=== PATIENT | female | born 1950 | race Two or more races ===

== ENCOUNTER → 2024-08-27 | Outpatient (CLI) | payer OTHER, MEDICAID, SELFPAY ==
[2024-08-27 11:42] LABS: Collection Type, Urine Clean Catch; Squamous Epithelial Cell,Urine 0 /hpf (0-5)
[2024-08-27 12:51] LABS: Basophils % (Auto) 0 % (0-2.5); Eosinophils # (Auto) 0.1 Thou/mm3 (0.0-0.5); Eosinophils % (Auto) 3 % (0-10); Hematocrit 37.8 % (36.0-46.0); Hemoglobin 12.7 g/dL (12.0-16.0); Immature Granulocytes % (Auto) 0 % (0-0); Lymphocytes # (Auto) 1.4 Thou/mm3 (1.0-4.8); Lymphocytes % (Auto) 30 % (10-50); Mean Corpuscular HGB Conc 33.6 g/dl (31.0-37.0); Mean Corpuscular Hemoglobin 31.3 pg (25.0-35.0); Mean Corpuscular Volume 93 fL (80-100); Monocytes # (Auto) 0.3 Thou/mm3 (0.0-0.8); Monocytes % (Auto) 6 % (0-12); Neutrophils # (Auto) 2.7 Thou/mm3 (1.8-7.7); Neutrophils % (Auto) 60 % (37-80); Nucleated Red Blood Cell % 0 /100 WBC (0); Platelet Count 180 Thou/mm3 (140-440); RDW Standard Deviation 40.9 fL (36.4-46.3); Red Blood Count 4.06 Miln/mm3 (4.00-5.20); White Blood Count 4.5 Thou/mm3 (3.6-11.0)
[2024-08-27 13:07] LABS: Glucose Estimated Average 137 mg/dL (80-131); Hemoglobin A1C 6.4 % Hgb (4.8-6.0)
[2024-08-27 13:24] LABS: Alanine Aminotransferase 19 U/L (10-49); Albumin, Serum 4.3 gm/dL (3.4-4.8); Albumin/Globulin Ratio 1.4 (1.2-2.2); Alkaline Phosphatase 85 U/L (46-116); Anion Gap 8 (7-16); Aspartate Amino Transferase 26 U/L (0-34); BUN/Creatinine Ratio 23 Ratio (12-20); Blood Urea Nitrogen 14 mg/dL (9-23); Calcium 10.4 mg/dL (8.3-10.6); Calcium (Corrected) 10.4 mg/dL (8.5-10.1); Carbon Dioxide 30.3 mMol/L (20.0-31.0); Cardiac Risk Estimate 3.3 RATIO (3.7-5.6); Chloride 103 mMol/L (98-107); Cholesterol 118 mg/dL (132-200); Creatinine (Component) 0.6 mg/dL (0.6-1.3); Glucose 126 mg/dL (74-106); HDL Cholesterol 36 mg/dL (40-60); LDL Cholesterol,Calculated 58 mg/dL (0-130); Osmolality,Calculated 283 (275-295); Potassium 4.3 mMol/L (3.4-5.1); Sodium 141 mMol/L (136-145); Total Protein 7.3 gm/dL (5.7-8.2); Triglycerides 120 mg/dL (30-150); eGFR > 60 See Note
[2024-08-27 13:28] LABS: Bacteria,Urine Rare; Bilirubin,Urine Negative (Negative); Blood,Urine Negative (Negative); Clarity,Urine Clear (Clear/Hazy); Color,Urine Lt-Yellow (Lt Yel-Yel); Glucose, Urine Negative (Negative); Ketones,Urine Negative (Negative); Leukocyte Esterase,Urine Positive (Negative); Nitrite,Urine Negative (Negative); PH,Urine 6.5 (5.0-7.0); Protein,Urine Negative (Neg - Trace); RBC,Urine 3 /hpf (0-3); Specific Gravity,Urine 1.018 (1.001-1.035); WBC,Urine 31 /hpf (0-5)
[2024-08-27 13:44] LABS: Thyroid Stimulating Hormone 1.65 uIU/mL (0.55-4.78)
[2024-08-27 14:35] LABS: Parathyroid Hormone Intact 88.2 pg/ml (18.5-88.0)
== END | disposition home or self-care (01) ==
LOC: COPL 10:55
PROVIDERS: PCP Internal Medicine; Referring Provider Internal Medicine; Visit Provider Internal Medicine
DX: E11.9 Type 2 diabetes mellitus without complications (principal); I10 Essential (primary) hypertension; E78.5 Hyperlipidemia, unspecified
CPT/HCPCS: 36415; 80053; 80061; 81001; 83036; 83970; 84443; 85025

== ENCOUNTER → 2024-12-09 | Outpatient (CLI) | payer OTHER, MEDICAID, SELFPAY ==
--- NOTE | 2024-12-09 14:30 | XR_ITS ---
Examination: Abdomen sonogram, complete Date and time of exam: December 09, 2024 1430 hours INDICATIONS: Right lower abdominal pain left lower abdominal pain beginning 2 weeks ago. Technique: Multiple real-time grayscale transabdominal sonographic images of the abdomen have been obtained. Findings: Absent gallbladder Normal common bile duct 0.3 cm Pancreatic head 2.5 cm Aorta not enlarged Liver 14.4 cm no liver lesions Normal hepatopedal portal venous flow Patent IVC Right kidney 9.1 cm cortex 1.3 cm 18 mm lower pole cyst 7 mm midpole calculus Minimal hydronephrosis Left kidney 11.7 cm cortex 2.2 cm 8mm upper pole calculus Minimal hydronephrosis Spleen 11.4 cm IMPRESSION: Absent gallbladder Normal common bile duct Bilateral renal calculi Minimal bilateral hydronephrosis
== END | disposition home or self-care (01) ==
PROVIDERS: PCP Internal Medicine; Referring Provider Internal Medicine; Visit Provider Internal Medicine
DX: N20.0 Calculus of kidney (principal); N13.30 Unspecified hydronephrosis; Z90.49 Acquired absence of other specified parts of digestive tract
CPT/HCPCS: 76700

== ENCOUNTER → 2025-01-16 | Outpatient (CLI) | payer OTHER, MEDICAID, SELFPAY ==
[2025-01-16 08:58] LABS: Collection Type, Urine Clean Catch
[2025-01-16 09:18] LABS: Basophils # (Auto) 0.1 Thou/mm3 (0.0-0.2); Basophils % (Auto) 1 % (0-2.5); Eosinophils # (Auto) 0.1 Thou/mm3 (0.0-0.5); Eosinophils % (Auto) 2 % (0-10); Hematocrit 35.9 % (36.0-46.0); Hemoglobin 12.5 g/dL (12.0-16.0); Immature Granulocytes % (Auto) 0 % (0-0); Immature Granulocytes Auto 0.01 Thou/mm3 (0.00-0.00); Lymphocytes # (Auto) 1.9 Thou/mm3 (1.0-4.8); Lymphocytes % (Auto) 34 % (10-50); Mean Corpuscular HGB Conc 34.8 g/dl (31.0-37.0); Mean Corpuscular Hemoglobin 32.6 pg (25.0-35.0); Mean Corpuscular Volume 94 fL (80-100); Monocytes # (Auto) 0.4 Thou/mm3 (0.0-0.8); Monocytes % (Auto) 6 % (0-12); Neutrophils # (Auto) 3.2 Thou/mm3 (1.8-7.7); Neutrophils % (Auto) 56 % (37-80); Nucleated Red Blood Cell % 0 /100 WBC (0); Platelet Count 153 Thou/mm3 (140-440); RDW Standard Deviation 42.3 fL (36.4-46.3); Red Blood Count 3.83 Miln/mm3 (4.00-5.20); White Blood Count 5.6 Thou/mm3 (3.6-11.0)
[2025-01-16 09:24] LABS: Glucose Estimated Average 140 mg/dL (80-131); Hemoglobin A1C 6.5 % Hgb (4.8-6.0)
[2025-01-16 09:27] LABS: Bacteria,Urine 4+; Bilirubin,Urine Negative (Negative); Blood,Urine Trace (Negative); Clarity,Urine Clear (Clear/Hazy); Color,Urine Lt-Yellow (Lt Yel-Yel); Glucose, Urine Negative (Negative); Ketones,Urine Negative (Negative); Leukocyte Esterase,Urine Positive (Negative); Nitrite,Urine Positive (Negative); Protein,Urine Negative (Neg - Trace); RBC,Urine 3 /hpf (0-3); Specific Gravity,Urine 1.024 (1.001-1.035); Squamous Epithelial Cell,Urine 1 /hpf (0-5); WBC,Urine 42 /hpf (0-5)
[2025-01-16 09:28] LABS: Parathyroid Hormone Intact 95.9 pg/ml (18.5-88.0)
[2025-01-16 09:28] LABS: Calcium, Random Urine 11 mg/dL (2-18); Creatinine MALB Rnd Ur 99 mg/dL (30-125); Creatinine,Random Urine 99 mg/dL (30-125); Microalbumin Creat Ratio 12 mg/gCrea (<30); Microalbumin, Random Urine 12 mg/L (0-300)
[2025-01-16 09:32] LABS: Alanine Aminotransferase 22 U/L (10-49); Albumin, Serum 4.2 gm/dL (3.4-4.8); Albumin/Globulin Ratio 1.6 (1.2-2.2); Alkaline Phosphatase 79 U/L (46-116); Anion Gap 8 (7-16); Aspartate Amino Transferase 25 U/L (0-34); BUN/Creatinine Ratio 21 Ratio (12-20); Blood Urea Nitrogen 15 mg/dL (9-23); Carbon Dioxide 23.9 mMol/L (20.0-31.0); Cardiac Risk Estimate 3.2 RATIO (3.7-5.6); Chloride 109 mMol/L (98-107); Cholesterol 104 mg/dL (132-200); Creatinine (Component) 0.7 mg/dL (0.6-1.3); Globulin 2.7 gm/dL (2.3-3.5); Glucose 147 mg/dL (74-106); HDL Cholesterol 33 mg/dL (40-60); LDL Cholesterol,Calculated 53 mg/dL (0-130); Osmolality,Calculated 285 (275-295); Potassium 4.1 mMol/L (3.4-5.1); Sodium 141 mMol/L (136-145); Thyroid Stimulating Hormone 1.79 uIU/mL (0.55-4.78); Total Protein 6.9 gm/dL (5.7-8.2); Triglycerides 91 mg/dL (30-150); eGFR > 60 See Note
== END | disposition home or self-care (01) ==
LOC: COPL 08:01
PROVIDERS: PCP Internal Medicine; Referring Provider Internal Medicine; Visit Provider Internal Medicine
DX: E11.9 Type 2 diabetes mellitus without complications (principal); I10 Essential (primary) hypertension; E78.5 Hyperlipidemia, unspecified; E55.9 Vitamin D deficiency, unspecified
CPT/HCPCS: 36415; 80053; 80061; 81001; 82043; 82306; 82340; 82570; 83036; 83970; 84443; 85025

== ENCOUNTER → 2025-01-28 | Outpatient (CLI) | payer OTHER, MEDICAID, SELFPAY ==
--- NOTE | 2025-01-28 13:00 | XR_ITS ---
Examination: Thyroid sonography complete TECHNIQUE: Grayscale sonographic images thyroid lobes are carful analysis Date and time: January 28, 2025 1318 hours INDICATIONS: Hyperparathyroidism, abnormal laboratory values on examination 2 weeks ago FINDINGS: Right thyroid 3.9 cm Lower pole cyst 4 x 4 millimeter, 2 x 2 mm Isthmus nodule with calcifications 5 x 5 mm Left thyroid 3.2 cm No cystic or solid mass IMPRESSION: Small isthmus thyroid nodule 5 x 4 x 5 mm
--- NOTE | 2025-01-28 13:45 | XR_ITS ---
Examination: Screening digital mammography, bilateral Computer aided detection 3-D breast Tomosynthesis, bilateral Date and time of exam: January 28, 2025 1330 hours Compared to mammograms dating to February 16, 2018 Indication: Screening Technique: Nonmagnified MLO, CC views of the breasts to been obtained, reconstructed from 3-D Tomosynthesis images. R2 computer aided detection program utilized for evaluation of suspicious masses and/or abnormal calcifications. 3-D Tomosynthesis images obtained. Findings: Scattered areas of fibroglandular density. Benign calcifications. No interval suspicious masses Impression: BI-RADS category II: Benign Findings. Recommend 1 year follow-up mammogram.
--- NOTE | 2025-01-28 14:20 | XR_ITS ---
Examination: Bone densitometry Date and time of exam:January 28, 2025 1657 hours INDICATIONS: Hysterectomy age 53 diabetic vitamin D 2 months personal history osteopenia Technique: Lumbar spine and hip total bone mineralization values of an calculated. Peak reference and age match control results have been displayed. Findings: Lumbar spine total bone mineralization is0.815 gm/cm2. This is 2.1 standard deviations below peak reference. This is 24 standard deviations above age-matched controls. Hip total bone mineralization is 0.696 gm/cm2 This is 2.0 standard deviations below peak reference. This is 0.1 standard deviations below age-matched controls Impression: There is osteopenia based on lumbar spine measurements. There is osteoporosis based on hip measurements Lumbar mineralization is increased 1.9% compared with July 08, 2021 Hip mineralization is decreased 3.2% compared with July 08, 2021
== END | disposition home or self-care (01) ==
LOC: CDIM 12:59
PROVIDERS: PCP Internal Medicine; Referring Provider Internal Medicine; Visit Provider Internal Medicine
DX: Z12.31 Encounter for screening mammogram for malignant neoplasm of breast (principal); R92.323 Mammographic fibroglandular density, bilateral breasts; R92.1 Mammographic calcification found on diagnostic imaging of breast; M85.88 Other specified disorders of bone density and structure, other site; M81.0 Age-related osteoporosis without current pathological fracture; E04.1 Nontoxic single thyroid nodule
CPT/HCPCS: 76536; 77063; 77067; 77080

== ENCOUNTER → 2025-02-20 | Outpatient (CLI) | payer OTHER, MEDICAID, SELFPAY ==
[2025-02-20 10:00] LABS: Collection Type, Urine Clean Catch
[2025-02-20 10:16] LABS: Basophils # (Auto) 0.0 Thou/mm3 (0.0-0.2); Basophils % (Auto) 1 % (0-2.5); Eosinophils # (Auto) 0.1 Thou/mm3 (0.0-0.5); Eosinophils % (Auto) 2 % (0-10); Hematocrit 38.7 % (36.0-46.0); Hemoglobin 13.3 g/dL (12.0-16.0); Immature Granulocytes Auto 0.02 Thou/mm3 (0.00-0.00); Lymphocytes # (Auto) 1.5 Thou/mm3 (1.0-4.8); Lymphocytes % (Auto) 28 % (10-50); Mean Corpuscular HGB Conc 34.4 g/dl (31.0-37.0); Mean Corpuscular Hemoglobin 32.6 pg (25.0-35.0); Mean Corpuscular Volume 95 fL (80-100); Monocytes # (Auto) 0.3 Thou/mm3 (0.0-0.8); Monocytes % (Auto) 6 % (0-12); Neutrophils # (Auto) 3.3 Thou/mm3 (1.8-7.7); Neutrophils % (Auto) 63 % (37-80); Nucleated Red Blood Cell # 0.00 Thou/mm3 (0.00-0.00); Nucleated Red Blood Cell % 0 /100 WBC (0); Platelet Count 129 Thou/mm3 (140-440); RDW Standard Deviation 41.8 fL (36.4-46.3); Red Blood Count 4.08 Miln/mm3 (4.00-5.20); White Blood Count 5.3 Thou/mm3 (3.6-11.0)
[2025-02-20 10:19] LABS: Bilirubin,Urine Negative (Negative); Blood,Urine Negative (Negative); Clarity,Urine Clear (Clear/Hazy); Color,Urine Yellow (Lt Yel-Yel); Glucose, Urine Negative (Negative); Ketones,Urine Negative (Negative); Leukocyte Esterase,Urine Positive (Negative); Nitrite,Urine Negative (Negative); PH,Urine 6.5 (5.0-7.0); Protein,Urine Negative (Neg - Trace); RBC,Urine 5 /hpf (0-3); Specific Gravity,Urine 1.024 (1.001-1.035); Squamous Epithelial Cell,Urine 1 /hpf (0-5); Urobilinogen,Urine 3.0 mg/dL (0.0-1.0); WBC,Urine 18 /hpf (0-5)
[2025-02-20 10:22] LABS: Glucose Estimated Average 151 mg/dL (80-131); Hemoglobin A1C 6.9 % Hgb (4.8-6.0); Parathyroid Hormone Intact 108.7 pg/ml (18.5-88.0)
[2025-02-20 10:26] LABS: Alanine Aminotransferase 16 U/L (10-49); Albumin, Serum 4.1 gm/dL (3.4-4.8); Albumin/Globulin Ratio 1.5 (1.2-2.2); Alkaline Phosphatase 79 U/L (46-116); Anion Gap 4 (7-16); Aspartate Amino Transferase 24 U/L (0-34); BUN/Creatinine Ratio 19 Ratio (12-20); Bilirubin,Total 1.4 mg/dL (0.3-1.2); Blood Urea Nitrogen 13 mg/dL (9-23); Calcium 9.8 mg/dL (8.3-10.6); Calcium (Corrected) 9.8 mg/dL (8.5-10.1); Carbon Dioxide 28.7 mMol/L (20.0-31.0); Cardiac Risk Estimate 3.2 RATIO (3.7-5.6); Chloride 107 mMol/L (98-107); Cholesterol 126 mg/dL (132-200); Creatinine (Component) 0.7 mg/dL (0.6-1.3); Globulin 2.8 gm/dL (2.3-3.5); Glucose 146 mg/dL (74-106); HDL Cholesterol 40 mg/dL (40-60); LDL Cholesterol,Calculated 66 mg/dL (0-130); Osmolality,Calculated 282 (275-295); Potassium 4.0 mMol/L (3.4-5.1); Sodium 140 mMol/L (136-145); Thyroid Stimulating Hormone 2.03 uIU/mL (0.55-4.78); Total Protein 6.9 gm/dL (5.7-8.2); Triglycerides 99 mg/dL (30-150); eGFR > 60 See Note
[2025-02-20 10:27] LABS: Vitamin D 25 Hydroxy Total 53.3 ng/mL (7.3-40.2)
[2025-02-20 10:31] LABS: Calcium, Random Urine 11 mg/dL (2-18); Creatinine MALB Rnd Ur 104 mg/dL (30-125); Creatinine,Random Urine 104 mg/dL (30-125); Microalbumin Creat Ratio 8 mg/gCrea (<30); Microalbumin, Random Urine 8 mg/L (0-300)
== END | disposition home or self-care (01) ==
LOC: COPL 09:04
PROVIDERS: PCP Internal Medicine; Referring Provider Internal Medicine; Visit Provider Internal Medicine
DX: E11.9 Type 2 diabetes mellitus without complications (principal); I10 Essential (primary) hypertension; E78.5 Hyperlipidemia, unspecified; E55.9 Vitamin D deficiency, unspecified
CPT/HCPCS: 36415; 80053; 80061; 81001; 82043; 82306; 82340; 82570; 83036; 83970; 84443; 85025

== ENCOUNTER 2025-04-22 08:40 | Outpatient (RCR) | payer OTHER, MEDICAID, SELFPAY ==
--- NOTE | 2025-04-22 08:54 | XR_ITS ---
Examination: Nuclear medicine parathyroid scan Date and time: April 22, 2025 1654 hours INDICATIONS: Hypertension diabetes, elevated PTH on laboratory examination this month TECHNIQUE AND FINDINGS: Intravenous administration 24.2 mCi technetium 99m sestamibi Anterior pinhole chest imaging obtained before hours No abnormal isotope accumulation IMPRESSION: Negative examination
== END 2025-04-27 23:59 | disposition home or self-care (01) ==
LOC: SNUC 08:40
PROVIDERS: PCP Internal Medicine; Referring Provider Internal Medicine; Visit Provider Internal Medicine
DX: E21.0 Primary hyperparathyroidism (principal)
CPT/HCPCS: 78070; A9500

== ENCOUNTER → 2025-04-24 | Outpatient (BNVA) | payer OTHER, MEDICAID, SELFPAY | END | disposition home or self-care (01) | PROVIDERS: PCP Internal Medicine; Referring Provider Internal Medicine; Visit Provider Urology | DX: R32 Unspecified urinary incontinence (principal); R35.0 Frequency of micturition; I10 Essential (primary) hypertension; E21.3 Hyperparathyroidism, unspecified; G47.33 Obstructive sleep apnea (adult) (pediatric); E78.5 Hyperlipidemia, unspecified; E11.8 Type 2 diabetes mellitus with unspecified complications; I25.10 Atherosclerotic heart disease of native coronary artery without angina pectoris; Z95.2 Presence of prosthetic heart valve | CPT/HCPCS: 81003; 99212; G0463 ==

== ENCOUNTER → 2025-05-12 | Outpatient (CLI) | payer OTHER, MEDICAID, SELFPAY ==
[2025-05-12 10:06] LABS: Misc Send Out* See Sep Rpt
[2025-05-12 10:46] LABS: Parathyroid Hormone Intact 138.7 pg/ml (18.5-88.0)
[2025-05-12 10:48] LABS: Basophils # (Auto) 0.1 Thou/mm3 (0.0-0.2); Basophils % (Auto) 1 % (0-2.5); Eosinophils # (Auto) 0.1 Thou/mm3 (0.0-0.5); Eosinophils % (Auto) 2 % (0-10); Hematocrit 38.1 % (36.0-46.0); Hemoglobin 13.1 g/dL (12.0-16.0); Immature Granulocytes Auto 0.01 Thou/mm3 (0.00-0.00); Lymphocytes # (Auto) 2.0 Thou/mm3 (1.0-4.8); Lymphocytes % (Auto) 33 % (10-50); Mean Corpuscular HGB Conc 34.4 g/dl (31.0-37.0); Mean Corpuscular Hemoglobin 32.3 pg (25.0-35.0); Mean Corpuscular Volume 94 fL (80-100); Monocytes # (Auto) 0.4 Thou/mm3 (0.0-0.8); Monocytes % (Auto) 6 % (0-12); Neutrophils # (Auto) 3.5 Thou/mm3 (1.8-7.7); Neutrophils % (Auto) 58 % (37-80); Nucleated Red Blood Cell # 0.00 Thou/mm3 (0.00-0.00); Nucleated Red Blood Cell % 0 /100 WBC (0); Platelet Count 150 Thou/mm3 (140-440); RDW Standard Deviation 42.6 fL (36.4-46.3); Red Blood Count 4.05 Miln/mm3 (4.00-5.20); White Blood Count 6.1 Thou/mm3 (3.6-11.0)
[2025-05-12 10:51] LABS: Alanine Aminotransferase 46 U/L (10-49); Albumin, Serum 4.5 gm/dL (3.4-4.8); Anion Gap 10 (7-16); Aspartate Amino Transferase 43 U/L (0-34); BUN/Creatinine Ratio 16 Ratio (12-20); Bilirubin,Total 1.8 mg/dL (0.3-1.2); Blood Urea Nitrogen 11 mg/dL (9-23); Calcium 10.4 mg/dL (8.3-10.6); Calcium (Corrected) 10.4 mg/dL (8.5-10.1); Carbon Dioxide 23.7 mMol/L (20.0-31.0); Chloride 107 mMol/L (98-107); Creatinine (Component) 0.7 mg/dL (0.6-1.3); Globulin 2.9 gm/dL (2.3-3.5); Glucose 129 mg/dL (74-106); Osmolality,Calculated 282 (275-295); Phosphorous 2.5 mg/dL (2.4-5.1); Potassium 3.9 mMol/L (3.4-5.1); Sodium 141 mMol/L (136-145); Total Protein 7.4 gm/dL (5.7-8.2); eGFR > 60 See Note
[2025-05-12 10:52] LABS: Albumin/Globulin Ratio 1.6 (1.2-2.2); Alkaline Phosphatase 64 U/L (46-116)
[2025-05-12 10:54] LABS: Vitamin D 25 Hydroxy Total 60.1 ng/mL (7.3-40.2)
[2025-05-15 06:34] LABS: Vitamin D,1,25 (OH)2,Total 43 pg/mL (18-72); Vitamin D2, 1,25 (OH)2 43 pg/mL; Vitamin D3, 1,25 (OH)2 <8 pg/mL
== END | disposition home or self-care (01) ==
LOC: COPL 09:26
PROVIDERS: PCP Internal Medicine; Referring Provider Internal Medicine Endocrinology, Diabetes & Metabolism; Visit Provider Internal Medicine Endocrinology, Diabetes & Metabolism
DX: E21.3 Hyperparathyroidism, unspecified (principal)
CPT/HCPCS: 36415; 80053; 82306; 82652; 83970; 84100; 85025

== ENCOUNTER → 2025-05-14 | Outpatient (CLI) | payer OTHER, MEDICAID, SELFPAY ==
[2025-05-14 10:20] LABS: Misc Send Out* See Sep Rpt
== END | disposition home or self-care (01) ==
LOC: SLDO 10:12
PROVIDERS: Referring Provider Internal Medicine Endocrinology, Diabetes & Metabolism; Visit Provider Internal Medicine Endocrinology, Diabetes & Metabolism
DX: E21.3 Hyperparathyroidism, unspecified (principal)
CPT/HCPCS: 82340; 82570

== ENCOUNTER → 2025-05-16 | Outpatient (CLI) | payer OTHER, MEDICAID, SELFPAY ==
[2025-05-16 10:40] LABS: Misc Send Out* See Sep Rpt
== END | disposition home or self-care (01) ==
LOC: SLDO 10:15
PROVIDERS: Referring Provider Internal Medicine Endocrinology, Diabetes & Metabolism; Visit Provider Internal Medicine Endocrinology, Diabetes & Metabolism
DX: E21.3 Hyperparathyroidism, unspecified (principal)
CPT/HCPCS: 82340; 82570

== ENCOUNTER → 2025-05-26 | Outpatient (CLI) | payer OTHER, MEDICAID, SELFPAY ==
--- NOTE | 2025-05-26 13:00 | XR_ITS ---
Examination: CT abdomen and pelvis without contrast. Coronal 3-D reconstructions. Sagittal 2-D reconstructions. Date and time of exam: May 26, 2025, 1319 hours INDICATIONS: Bilateral flank pain 5 months, history kidney stones COMPARISON: July 28, 2014 CTDI: vol (mGy): 5.78 DLP: (mGycm): 332 Technique: Axial images of the abdomen have been obtained, 3 mm slice thickness Intravenous contrast material has not been administered. Low dose protocols were performed. One or more of the following dose reduction techniques were used; automated exposure control, adjustment of the mA and/or KV according to patient size, use of iterative reconstruction technique. Findings: No visualized liver or splenic lesion Absent gallbladder No pancreatic or adrenal mass Moderate renal scar formation 5 mm calculus upper pole left kidney No hydronephrosis or ureteral calculi No pericecal inflammatory change No bowel obstruction or diverticulitis Aorta in the abdomen is not enlarged Contracted urinary bladder Small air droplet in the urinary bladder No bladder mass or bladder calculi Absent uterus Prominent osteopenia IMPRESSION: 5 mm nonobstructing calculus upper pole left kidney, no hydronephrosis or ureteral calculi Contracted urinary bladder
== END | disposition home or self-care (01) ==
PROVIDERS: PCP Internal Medicine; Referring Provider Urology; Visit Provider Urology
DX: N20.0 Calculus of kidney (principal); N32.89 Other specified disorders of bladder
CPT/HCPCS: 74176

== ENCOUNTER 2025-06-18 14:04 | Emergency (ER) | payer OTHER, MEDICAID, SELFPAY ==
[2025-06-18 14:05] VITALS: BMI 26.7
[2025-06-18 14:24] VITALS: BP 165/91; PULSE 66; RESP 16; TEMP 36.9; O2SAT 98
--- NOTE | 2025-06-18 14:30 | XR_ITS ---
Examination: Knee, right, 3 views Technique: Knee AP, lateral, oblique 3 views Date and time of exam: June 18, 2025, 1500 hours INDICATIONS: Patient tripped and fell today with injury to the knee, knee pain. FINDINGS: Significant osteopenia Small knee effusion Moderate narrowing medial joint space Meniscus calcification IMPRESSION: No definite acute fracture Given the significant osteopenia, suggest short-term follow-up knee films as clinically warranted
--- NOTE | 2025-06-18 14:30 | XR_ITS ---
Examination: CT brain head without contrast. 2-D sagittal coronal reconstructions Date and time of exam: June 18, 2025, 1538 hours INDICATIONS: Tripped and fell today with injury to the head, head pain side chest single CTDI: vol (mGy): 49.2 DLP: (mGycm): 902 Technique: Multiple CT axial sections of the brain have been obtained, 5 mm slice thickness. Contrast has not been administered. 2-D sagittal, coronal reconstructions have been obtained Low dose protocols were performed. One or more of the following dose reduction techniques were used; automated exposure control, adjustment of the mA and/or KV according to patient size, use of iterative reconstruction technique. Findings: No significant ventricular enlargement. Intra-axial or extra-axial hemorrhage density is not seen. No mass effect or midline shift Basal cisterns are not remarkable. Fourth ventricle is midline. Cranial vault intact. Impression: Negative for acute hemorrhage, mass effect or midline shift
--- NOTE | 2025-06-18 14:31 | PD.EDFALL ---
ED Fall Injury RME/HPI General Chief Complaint: Fall Stated Complaint: FALL; C/O R KNEE Time Seen by Provider: 06/18/25 14:10 Arrival date/time: 06/18/25 14:04 [id number]-year-old female patient came in for evaluation regarding right knee pain. Patient sustained a ground-level fall was walking and fell forward resulting into pain to the right knee. Patient denies any headache neck pain chest pain back pain pelvic pain. Patient is ambulatory but limping. Patient is taking aspirin 81 mg daily. No nausea no vomiting no LOC. Related Data Home Medications ?Medication ?Instructions ?Recorded ?Confirmed cinacalcet 30 mg tablet 30 mg PO QDAY 08/10/20 04/24/25 metformin 500 mg tablet 500 mg PO BID 08/10/20 04/24/25 pravastatin 20 mg tablet 20 mg PO QDAY 08/10/20 04/24/25 amlodipine 5 mg tablet 5 mg PO QDAY 04/24/25 04/24/25 aspirin 81 mg tablet 81 mg PO QDAY 04/24/25 04/24/25 carvedilol 6.25 mg tablet 6.25 mg PO BID 04/24/25 04/24/25 valsartan 160 mg tablet 160 mg PO QDAY 04/24/25 04/24/25 Previous Rx's ?Medication ?Instructions ?Recorded docusate sodium 100 mg capsule 100 mg PO BID #60 caps 08/11/20 (Colace) Allergies Allergy/AdvReac Type Severity Reaction Status Date / Time No Known Allergies Allergy Verified 06/18/25 14:07 Review of Systems Review of Systems Narrative Review of Systems: Review of system reviewed and within normal limits except mentioned in HPI ED Exam Narrative Physical exam: VITAL SIGNS: Reviewed. GENERAL APPEARANCE: Alert and interactive, follows commands, no acute distress, HEAD AND FACE: Non-traumatic. ENT: PERRL, pink conjunctivitis, eyelid no trauma, Mucous membrane moist. NECK: Supple, nontender, no nuchal rigidity. CHEST: No tenderness, no crepitus, no paradoxical movement, no retractions. LUNGS: Clear, well ventilated, symmetric, no rales, no wheezing, no ronchi, no stridor, good breath sounds bilaterally. HEART: Regular rate, regular rhythm, no murmur, no gallops. ABDOMEN: Soft, positive bowel sounds, nondistended, no guarding, nontender, no rebound, no masses, RECTAL: Deferred. GENITAL: Deferred. NEUROLOGICAL: Gross motor function intact sensory function intact, Appropriate for age. MUSCULOSKELETAL: low back nontender, full range of motion. EXTREMITIES: Right knee swelling, tenderness, with limitation range of motion. Distal neurovascular status intact SKIN: Color pink, dry, no rash, no lacerations, no abrasions, no contusions. LYMPHATICS: Deferred. Course Quality Measures none Orders Category Date Time Status CT head/brain wo con Stat Exams 06/18/25 14:30 Completed XR knee RT 3V Stat Exams 06/18/25 14:30 Completed Vital Signs Vital signs: Vital Signs Temperature 98.4 F 06/18/25 14:24 Pulse Rate 66 06/18/25 14:24 Respiratory Rate 16 06/18/25 14:24 Blood Pressure 165/91 H 06/18/25 14:24 Pulse Oximetry (%) 98 06/18/25 14:24 Oxygen Delivery Method Room Air 06/18/25 14:24 Fall MDM Narrative MDM Narrative:: [id number]-year-old female patient came in for evaluation regarding right knee pain. Patient sustained a ground-level fall was walking and fell forward resulting into pain to the right knee. Patient denies any headache neck pain chest pain back pain pelvic pain. Patient is ambulatory but limping. Patient is taking aspirin 81 mg daily. No nausea no vomiting no LOC. CT scan of the head came back unremarkable. X-ray of the knee also came back normal. Results discussed with the patient. Patient was supplied with a walker and was noted to be walking without assistance except for a walker. Patient stable for charged home. Presents Patient data External records reviewed:: None Clinical information provided by:: patient and family Social determinants that could affect healthcare access:: none Patient has the following chronic illnesses:: Hypertension How is presenting disease/condition affected by chronic disease/condition?: exacerbated by Evaluation data The following diagnostics were reviewed and interpreted by me:: radiology exam(s) Lab and/or radiology exams considered but not ordered:: None Interpretation Summary: See above Medications / Prescriptions Medications or Prescriptions considered but not ordered:: None Medication administrations:: None Consultations Consultation(s) initiated? (list below): No Diagnosis Fall Differential Diagnosis: other (Fall, knee pain knee contusion) Most likely diagnosis given after review of the tests above:: Knee pain knee contusion Admission Indicated Admission indicated?: not indicated Admission Request Was there a request for admission?: No Disposition Plan Disposition Plan: Discharge Discharge Attestation Discharge Attestation: The patient and all family members were given an opportunity to ask questions and understood the discharge instructions. Discharge instructions specifically effects, indications for sooner follow up or return to the emergency department, and the expected course of current diagnosis. Patient condition: Stable Discharge Plan Plan Patient Disposition: HOME (Self Care) Discharge Disposition comment: Stable Prescriptions/Referrals Prescriptions/Med Rec: No Action carvedilol 6.25 mg tablet 6.25 mg PO BID Rx Instructions: must administer with a meal/food amlodipine 5 mg tablet 5 mg PO QDAY aspirin 81 mg tablet 81 mg PO QDAY valsartan 160 mg tablet 160 mg PO QDAY metformin 500 mg Tablet 500 mg PO BID pravastatin 20 mg Tablet 20 mg PO QDAY cinacalcet 30 mg Tablet 30 mg PO QDAY docusate sodium [Colace] 100 mg capsule 100 mg PO BID Qty: 60 0RF Referrals: Venkat Rhodes MD [Primary Care Provider, Nephrology] - In 1 week Problem List Clinical Impression: Contusion of knee, Acute knee pain, Fall Patient/Caregiver Discharge Instructions Discharge Activity: activity as tolerated Education Materials: Knee Pain Additional Instructions: Thank you for the opportunity for serving you today. You are stable for discharged . You are advised to: Follow-up with your PCP in 1 to 2 days Return to ED for worsening of symptoms Increase oral fluids Take medication as prescribed Apply ice for 15 minutes 3 times a day as needed Ambulate with walker. Print Language: Lithuanian Stand Alone Forms: Alisia Award Info., Patient Portal Info Letter PA/ALYCIA Supervising Physician TESSIE/ALYCIA Supervising Physician: MD [place]
[2025-06-18 16:29] VITALS: BP 159/84; PULSE 67; RESP 18; TEMP 36.9; O2SAT 97
[2025-06-18 17:44] VITALS: BP 124/80; PULSE 78
== END 2025-06-18 17:45 | disposition home or self-care (01) ==
PROVIDERS: Emergency Provider Emergency Medicine; PCP Internal Medicine
DX: S80.00XA Contusion of unspecified knee, initial encounter (principal); W18.30XA Fall on same level, unspecified, initial encounter; Y93.01 Activity, walking, marching and hiking; Z79.82 Long term (current) use of aspirin; Z79.84 Long term (current) use of oral hypoglycemic drugs
CPT/HCPCS: 70450; 73562; 99283